=== PATIENT | female | born 1975 | race Caucasian/White ===

== ENCOUNTER 2019-01-06 10:28 | Emergency (ER) | payer MEDICAID ==
[~2019-01-06] VITALS: Ht 165.1 cm; Wt 77.4 kg
[2019-01-06 10:38] VITALS: Ht 165.1 cm; Wt 77.4 kg
[2019-01-06] MEDS ORDERED: CEPH-443 PO (12:44)
[2019-01-06] MEDS ORDERED: IBUP-1542 PO (12:44)
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
[2019-01-06] MEDS ORDERED: IBUPROFEN 600 MG TAB PO ONE (13:00)
[2019-01-06] MEDS ORDERED: CEPHALEXIN 500 MG CAP PO ONE (13:00)
[2019-01-06] MEDS ORDERED: DIPHTH/TET/ACEL PERTUSS (ADULT) 0.5 ML VIAL IM* ONE (13:00)
== END 2019-01-06 13:45 | disposition home or self-care (01) ==
LOC: FTE 10:28
DX: T24.122A Burn of first degree of left knee, initial encounter (principal); X19.XXXA Contact with other heat and hot substances, initial encounter; Y92.9 Unspecified place or not applicable; Z23 Encounter for immunization; Z77.098 Contact with and (suspected) exposure to other hazardous, chiefly nonmedicinal, chemicals
CPT/HCPCS: 90471; 90715; Z7502; Z7610